=== PATIENT | male | born 1950 | race Caucasian/White ===

== ENCOUNTER → 2018-11-14 | Outpatient (CLI) | payer MEDICARE | END | disposition home or self-care (01) | LOC: RAD 11:41 | DX: M47.816 Spondylosis without myelopathy or radiculopathy, lumbar region (principal); M41.84 Other forms of scoliosis, thoracic region; M47.814 Spondylosis without myelopathy or radiculopathy, thoracic region; M48.54XA Collapsed vertebra, not elsewhere classified, thoracic region, initial encounter for fracture ==

== ENCOUNTER → 2020-01-21 | Outpatient (CLI) | payer MEDICARE | END | disposition home or self-care (01) | LOC: COVID19 16:46 | PROVIDERS: ATTEND Hospitalist | DX: U07.1 COVID-19 (principal) ==

== ENCOUNTER → 2021-01-12 | Outpatient (CLI) | payer MEDICARE ==
[2021-01-12 09:27] LABS: CHOLESTEROL 133 mg/dL (<200); LDL CHOLESTEROL 58 mg/dL (9-159); TRIGLYCERIDES 103 mg/dl (<150)
== END | disposition home or self-care (01) ==
LOC: LAB 08:51
PROVIDERS: ATTEND Internal Medicine
DX: M47.817 Spondylosis without myelopathy or radiculopathy, lumbosacral region (principal); I25.10 Atherosclerotic heart disease of native coronary artery without angina pectoris; M25.78 Osteophyte, vertebrae; M41.86 Other forms of scoliosis, lumbar region

== ENCOUNTER → 2022-07-05 | Outpatient (CLI) | payer MEDICARE | END | disposition home or self-care (01) | LOC: LAB 11:11 | PROVIDERS: ATTEND Internal Medicine | DX: R06.09 Other forms of dyspnea (principal); R06.02 Shortness of breath; Z20.822 Contact with and (suspected) exposure to COVID-19 ==

== ENCOUNTER → 2023-04-07 | Outpatient (CLI) | payer MEDICARE | END | disposition home or self-care (01) | LOC: LAB 13:17 | PROVIDERS: ATTEND Internal Medicine | DX: R05.9 Cough, unspecified (principal); R50.9 Fever, unspecified; R53.83 Other fatigue; Z20.822 Contact with and (suspected) exposure to COVID-19 ==

== ENCOUNTER 2023-10-24 13:21 | Emergency (ER) | payer MEDICARE ==
[~2023-10-24] VITALS: Ht 193 cm; Wt 98.4 kg
[2023-10-24] MEDS ORDERED: SODIUM CHLORIDE 0.9% 1,000 ML IV ONE (13:45)
[2023-10-24] MEDS ORDERED: diphenhydrAMINE hydrochloride 50 MG/ML VIAL IV ONE (13:45)
[2023-10-24] MEDS ORDERED: FAMOTIDINE 50 ML IV ONE (13:45)
[2023-10-24] MEDS ORDERED: methylPREDNISolone sod succ 125 MG VIAL IV ONE (13:45)
[2023-10-24] MEDS ORDERED: PREDNISONE50 MG PO (15:15)
== END 2023-10-24 13:43 | disposition home or self-care (01) ==
LOC: ED 13:21
DX: T63.441A Toxic effect of venom of bees, accidental (unintentional), initial encounter (principal); Z88.0 Allergy status to penicillin; Z88.2 Allergy status to sulfonamides; Y92.009 Unspecified place in unspecified non-institutional (private) residence as the place of occurrence of the external cause